=== PATIENT | male | born 1950 | race Caucasian/White ===

== ENCOUNTER 2019-01-16 13:14 | Inpatient (IN) | payer OTHER ==
[~2019-01-16] VITALS: Ht 180.3 cm; Wt 86.2 kg
[2019-01-16] MEDS ORDERED: ALBUTEROL0.63 MG/3 IH (13:31)
[2019-01-16] MEDS ORDERED: PREDNISONE10 MG PO (13:31)
[2019-01-16] MEDS ORDERED: ASA81 MG PO (13:32)
[2019-01-16] MEDS ORDERED: COZAAR50 MG PO (13:32)
== END 2019-01-24 18:07 | disposition home or self-care (01) | DRG 191 ==
LOC: ER 13:14 → MEDJ 19:06
PROVIDERS: ADMIT Internal Medicine
PROC: 4A033R1 Measurement of Arterial Saturation, Peripheral, Percutaneous Approach (ICD-10-PCS; 2019-01-16)
PROC: 3E0F7GC Introduction of Other Therapeutic Substance into Respiratory Tract, Via Natural or Artificial Opening (ICD-10-PCS; 2019-01-16)
PROC: BW24ZZZ Computerized Tomography (CT Scan) of Chest and Abdomen (ICD-10-PCS; 2019-01-18)
PROC: B246ZZZ Ultrasonography of Right and Left Heart (ICD-10-PCS; principal; 2019-01-19)
DX: J44.1 Chronic obstructive pulmonary disease with (acute) exacerbation (principal); I31.3 Pericardial effusion (noninflammatory); J44.0 Chronic obstructive pulmonary disease with (acute) lower respiratory infection; J20.9 Acute bronchitis, unspecified; R09.02 Hypoxemia; J45.998 Other asthma; R45.1 Restlessness and agitation; C67.9 Malignant neoplasm of bladder, unspecified; I10 Essential (primary) hypertension; Z93.6 Other artificial openings of urinary tract status

== ENCOUNTER 2019-05-27 13:07 | Outpatient (CLI) | payer OTHER ==
[~2019-05-27 13:07] MED LIST: ALBUTEROL0.63 MG/3 IH; ASA81 MG PO; COZAAR50 MG PO; PREDNISONE10 MG PO
== END 2019-05-27 13:21 | disposition home or self-care (01) ==
LOC: SONOGRAMA 13:07
DX: M06.4 Inflammatory polyarthropathy (principal)